=== PATIENT | male | born 1945 | race Caucasian/White ===

== ENCOUNTER → 2018-12-01 08:14 | Outpatient (CLI) | payer MEDICARE, OTHER, SELFPAY ==
--- NOTE | 2018-12-01 09:46 | NEURO ---
NCS and/or EMG Patient Report Ordering Doctor: Harish Lal DATE OF SERVICE: 12/01/18 Marvin Cadet is a 73 year old male who presents for electrodiagnostic testing of the left upper limb. He reports numbness and tingling in the left hand. He did not wish to have testing performed in the right upper limb. Electrodiagnostic findings: Left median motor nerve demonstrates prolonged distal latency with normal amplitude and reduced conduction velocity. Normal left ulnar motor latency with no decrease in conduction velocity across the elbow. Prolonged left median F-wave. Prolonged left median sensory latency. Prolonged left median palmar latency. Needle EMG demonstrated no evidence of denervation in any muscles tested in the left upper limb. Electrodiagnostic impression: This is an abnormal study. 1. Electrodiagnostic findings demonstrate left-sided median mononeuropathy. This is consistent with an advanced left carpal tunnel syndrome If there are any further questions, please do not hesitate to contact me.
== END ==
PROVIDERS: Family Provider Family Medicine; PCP Family Medicine; Referring Provider Physician Assistant Surgical; Visit Provider Physician Assistant Surgical
DX: R20.2 Paresthesia of skin (principal)
CPT/HCPCS: 95886; 95910

== ENCOUNTER → 2018-12-23 15:34 | Outpatient (CLI) | payer MEDICARE, OTHER, SELFPAY ==
--- NOTE | 2018-12-23 15:46 | EKG12_ITS ---
Test Reason : PRE OP Blood Pressure : / mmHG Vent. Rate : 087 BPM Atrial Rate : 087 BPM P-R Int : 140 ms QRS Dur : 076 ms QT Int : 358 ms P-R-T Axes : 057 -23 013 degrees QTc Int : 430 ms Normal sinus rhythm Normal ECG Confirmed by FERNY MARTINS, LOIS ([id number]), design editor PARADISE MCMAHON ([id number]) on 12/27/2018 1:24:03 PM Referred By: Urbano Keith Confirmed By:YARELIS ISAACS MD
[2018-12-23 16:08] LABS: Hemoglobin 14.6 g/dL (13.0-16.5); Mean Corp Hgb Conc 32.4 g/dL (32-36); Mean Corpuscular Hgb 30.7 pg (27.0-32.0); Mean Corpuscular Volume 94.7 fL (80-94); Mean Platelet Vol. 10.5 fl (6.2-12.0); Platelet Count 213 K/mm3 (150-450); RBC Distribution Width CV 12.6 % (11.6-14.6); RBC Distribution Width SD 43.8 fl (35.1-43.9); Red Blood Count 4.75 M/mm3 (4.6-6.2); White Blood Count 8.5 K/mm3 (4.4-11.0)
[2018-12-23 16:31] LABS: Anion Gap 7 (5-15); BUN 21 mg/dL (7-18); BUN/Creat Ratio 14.8 RATIO (10-20); Chloride 104 mmol/L (98-107); Creatinine, Serum 1.42 mg/dL (0.70-1.30); EST Glomerular Filtration Rate 52 mL/min (>60); Est Glom Filt Rate - Afr Amer 63 mL/min (>60); Glucose 102 mg/dL (74-106); Potassium 4.3 mmol/L (3.5-5.1); Sodium Level 138 mmol/L (136-145)
== END ==
PROVIDERS: Family Provider Family Medicine; PCP Family Medicine; Referring Provider Physician Assistant; Visit Provider Physician Assistant
DX: Z01.818 Encounter for other preprocedural examination (principal); I10 Essential (primary) hypertension; Z01.810 Encounter for preprocedural cardiovascular examination
CPT/HCPCS: 36415; 80048; 85027; 93005

== ENCOUNTER 2019-04-05 09:00 | Outpatient (RCR) | payer MEDICARE, OTHER, SELFPAY ==
--- NOTE | 2019-01-17 14:33 | HP.OTEVAL_ITS ---
Patient's Visit Information MARVIN MCMAHON is a 73 year old M, referred to Occupational Therapy by Urbano Keith PA-C, with a diagnosis of L CTS. Date of Evaluation: 01/17/19 Occupational Therapist: Harini Stout, OTR/L - Subjective Subjective: Marvin arrived and he is s/p CTS release on 12/29/18. He noted he is about 3 weeks post operation. 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 He noted that prior to surgery he was dealing with carpal tunnel related pain for 2-3 years in bilateral hands. He has hopes to also get right hand completed but due to pain in left has chosen to wait until completing rehab on left hand. - ADLs Dressing: Button shirt, Pants, Socks Fasteners: Tie shoes, Buttons, Zippers Eating: Use silverware, Cut food, Butter bread Bathing: Handle washcloth & soap, Wash hair Toileting: Manage clothing Kitchen: Chop with knife, Peel fruits & vegetables, Open jars, Open bottle caps, Lift gallon of milk, Pour from pitcher, Lift saucepan, Load/unload correctional guard Miscellaneous: Start car, Open medication bottle, Handle money (change), Hold change, Take things out of wallet, Open envelope, Write, Turn pages in book, Use hand tools, Use power tools, Use computer keyboard, Drive - Pain Left Wrist 5 Pain Intensity Range: 4, 8 - Objective Objective/Observation: Scar is closed and skin is pink and healing. - ROM Forearm: WFL Wrist: flexion R 0-66, L 0-61; extentsion R 0-29, L 0-41 MP: WFL PIP: WFL DIP: WFL - Strength Special Education Supervisor: R 78, L 50 Lateral Pinch: R 21, L 15 Tripod Pinch: R 16, L 18 Tip-to-Tip Pinch: R 9, L 6 - Sensation Thumb: R 4.17, L 4.56 Index: R 4.17, L 3.84 Middle: R 56, L 5.88 Ring: R 4.08, L 3.84 Little: R 3.61, L 3.61 - Nine Hole Peg Right: 26.91 s Left: 23.93 s - Quick DASH-Disab of Arm,Shoulder& Hand Quick DASH Score: 43.1800 - Goals Goal:: Marvin to increase L contour grinder by 20 lbs to promote increased strength and endurance to promote increased ability to return to PLOF by d/c. Goal:: Marvin to be mod I to manage pain and sensory deficits 4/5 trials 80% of the time to promote increased participation ADL/IADLs by d/c. Goal:: Marvin to complete sensory re- integration program to promote increased sensory training and decreased sensory defucuts 4/5 trials 80% of the time to promote returning to PLOF by d/c. Goal:: Marvin to be mod I to complete daily scar massage and desensitization program to promote decreased sensitivity around scar and promote increased mobility of L wrist 4/5 trials 80% of the time by d/c. Goal:: Marvin be (i) to complete joint protectiona nd wrist mechanics to decrease increased tension on soft tissue and risk of reinjury 4/5 trials 80% of the time by d/c. Goal:: Marvin to be (i) to return to all ADL/IADls including chopping/pealing vegetables, cooking tasks, and general self care tasks 4/5 trials 80% of the time to promote increased strength, endurance, and mobility needed to return to PLOF by d/c. Goal:: Marvin to be (i0 to complete daily HEP as set up by therpaist to promote increased ROM, HEP, and general ADL/IADls 4/5 trials 80% of the time by d/c. - Rehabilitation General Assessment: Marvin is 74 y/o who is s/p CTS release on L hand. He noted he has had symptoms for last 2-3 years but recently had L hand operated on and released. He noted increased symptoms post-surgery and sensory deficits noted on bilateral hands. He exhibits limited ROM and strength. Skilled OT warranted for 2-3x weekly for the next 4 weeks to promote increased ability to return to PLOF for ADL/IADLs. Rehabilitation Potential: Good - Anticipated Interventions Anticipated Interventions: A/AAROM/PROM, Strengthening, Edema Control, Massage, Triggerpoint Release, Desensitization, Sensory Retraining, Wound Care, Modalities, Orthoses, Joint Protection/Energy Conservation, Ergonomic Education, Fine Motor Coord/[place], Neuro Reeducation, ADL Training, Caregiver Training, Home Program - Visit Plan Frequency: 2-3x /Week Duration: 4 Weeks General Plan: Marvin to complete skilled OT services for ROM, strength, sensory re integration and desensitization, pain management, and general return to all ADL/IADLS. TEXT: Thank you for the opportunity to evaluate your patient. For Medicare and Medicare HMO plans, please review the plan of care and approve it. It will need to be FAXED BACK to us at [phone] for Medicare purposes. Please let me know if there are questions or concerns regarding this plan of care. Physician Signature: Date:
--- NOTE | 2019-02-02 11:30 | HP.OTREVAL ---
Urbano Keith PA-C, It has been my pleasure to treat MARVIN MCMAHON over the last 8 visits for L CTS. Please see the progress note below for an update on the occupational therapy plan of care! Subjective: Arrived and noted he has completed HEP. He noted he backed off activities yesterday and pain was not as bad and he slept through the night well. KT tape felt good during day but noted at night hurt two days ago. Asked if did more that day but unable to recall. Objective/Function: Completed taking new measurements today of 02/02/19 and results as follows: Strength: water pumping station engineer R 76, L 52. lateral pinch R 21, L 16. tripod R 16, L 13. pincer R 10, L 10. Sensation: L hand. 2nd 4.17. 3rd 6.65. 4th 3.61. 5th 3.61. thumb 4.31. 9 hole: R 31.16 s; L 25. 95 s. Concerns for sensation and strength are noted. MF has regressed in regaining sensation. He continues to have pain and stiffness. Plan Frequency: 2-3x /Week Duration: 2 Weeks Visits in this POC: 12-14 Plan: continue POC as directed for scheduled appointments for another 2 weeks to get 12-14 total. No changes in POC as will continuing to work on strength, sensory re integration strategies, and general pain management and return of function of L hand. OT has significant concerns of sensation of left hand in regards to middle finger and thumb. Marvin is unable to recall the significance of his nerve impingement but strength is progressing slowly from initial measurements and pain is constant. OT is trialing KT taping methods as well as requesting that he reduces consistent activities with L hand and if having pain take short breaks. Ot has talked of potential of wearing wrist cock up brace for pain management but he noted made right unaffected hand hurt worse when wearing for CTS and unwilling. It is likely he is completing too much but he consistently notes no progress or changes with pain since the initial evaluation. Goals - Goals Goal:: Marvin to increase L water pumping station engineer by 20 lbs to promote increased strength and endurance to promote increased ability to return to PLOF by d/c. Goal:: Marvin to be mod I to manage pain and sensory deficits 4/5 trials 80% of the time to promote increased participation ADL/IADLs by d/c. Goal:: Marvin to complete sensory re- integration program to promote increased sensory training and decreased sensory defucuts 4/5 trials 80% of the time to promote returning to PLOF by d/c. Goal:: Marvin to be mod I to complete daily scar massage and desensitization program to promote decreased sensitivity around scar and promote increased mobility of L wrist 4/5 trials 80% of the time by d/c. Goal:: Marvin be (i) to complete joint protectiona nd wrist mechanics to decrease increased tension on soft tissue and risk of reinjury 4/5 trials 80% of the time by d/c. Goal:: Marvin to be (i) to return to all ADL/IADls including chopping/pealing vegetables, cooking tasks, and general self care tasks 4/5 trials 80% of the time to promote increased strength, endurance, and mobility needed to return to PLOF by d/c. Goal:: Marvin to be (i0 to complete daily HEP as set up by therpaist to promote increased ROM, HEP, and general ADL/IADls 4/5 trials 80% of the time by d/c. Anticipated Interventions Anticipated Interventions: A/AAROM/PROM, Strengthening, Edema Control, Massage, Triggerpoint Release, Desensitization, Sensory Retraining, Wound Care, Modalities, Orthoses, Joint Protection/Energy Conservation, Ergonomic Education, Fine Motor Coord/[place], Neuro Reeducation, ADL Training, Caregiver Training, Home Program Please do not hesitate to contact me at [phone] by phone or if you have questions or concerns regarding this new plan of care! Sincerely, Harini Stout, ANABELAR/L
--- NOTE | 2019-02-14 09:05 | HP.OTREVAL ---
Urbano Keith PA-C, It has been my pleasure to treat MARVIN MCMAHON over the last 13 visits for L CTS. Please see the progress note below for an update on the occupational therapy plan of care! Subjective: Arrived and noted went to [employer] game. Noted movement is better but still numbness/tingling in IF, MF , and thumb of left hand. Numbness and tingling consistent with median nerve distribution. Objective/Function: Marvin completed reassessment on this date 02/14/19 and is as follows: ROM. - flexion: R WFL, L 0-64. - extension R WFL, L 0-52. Strength: - career development counselor R 81, L 64 lbs. - lateral R 22, L 14 lbs. - tripod R 15, L 10 lbs. - pincer R 15, L 9 lbs. Touch test: R. 2nd 4.08 ,3rd 3.84 ,4th 3.61, 5th 3.22, thumb 4.17. L. 2nd 4.17, 3rd 6.10, 4th 3.61, 5th 3.22, thumb 4.93. 9-hole pegboard test: R 21.56 s. L 24.75 s. Some progress noted with sensation of MF only. Progression noted for strength. Plan Frequency: 1x/Week Duration: 3 Weeks Visits in this POC: 16 Plan: continue POC for 1x weekly for the next three weeks to focus on continue strengthening as well as sensory techniques. He is to complete HEP of off days to promote returning to PLOF. Goals - Goals Goal:: Marvin to increase L career development counselor by 20 lbs to promote increased strength and endurance to promote increased ability to return to PLOF by d/c. Goal:: Marvin to be mod I to manage pain and sensory deficits 4/5 trials 80% of the time to promote increased participation ADL/IADLs by d/c. Goal:: Marvin to complete sensory re- integration program to promote increased sensory training and decreased sensory defucuts 4/5 trials 80% of the time to promote returning to PLOF by d/c. Goal:: Marvin to be mod I to complete daily scar massage and desensitization program to promote decreased sensitivity around scar and promote increased mobility of L wrist 4/5 trials 80% of the time by d/c. Goal:: Marvin be (i) to complete joint protection and wrist mechanics to decrease increased tension on soft tissue and risk of reinjury 4/5 trials 80% of the time by d/c. Goal:: Marvin to be (i) to return to all ADL/IADls including chopping/pealing vegetables, cooking tasks, and general self care tasks 4/5 trials 80% of the time to promote increased strength, endurance, and mobility needed to return to PLOF by d/c. Goal:: Marvin to be (i) to complete daily HEP as set up by therpaist to promote increased ROM, HEP, and general ADL/IADls 4/5 trials 80% of the time by d/c. Anticipated Interventions Anticipated Interventions: A/AAROM/PROM, Strengthening, Edema Control, Massage, Triggerpoint Release, Desensitization, Sensory Retraining, Wound Care, Modalities, Orthoses, Joint Protection/Energy Conservation, Ergonomic Education, Fine Motor Coord/[place], Neuro Reeducation, ADL Training, Caregiver Training, Home Program Please do not hesitate to contact me at [phone] by phone or if you have questions or concerns regarding this new plan of care! Sincerely, Harini Stout, OTR/L
--- NOTE | 2019-03-08 11:00 | HP.OTREVAL ---
Urbano Keith PA-C, It has been my pleasure to treat MARVIN MCMAHON over the last 16 visits for L CTS. Please see the progress note below for an update on the occupational therapy plan of care! Subjective: Arrived and noted will bet getting MRI on L wrist due to numbness and tingling. Feels that he has made 20 % only. He noted Dr. Lal did write script for gabapentin to promote management of symptoms. Objective/Function: Completed reassessment today of 03/08/19 and results as follows: ROM is WFL. Strength. plc controls engineer R 83, L 71 lbs. lateral R 21, L 14 lbs. tripod R 15, L 10 lbs. pincer R 14, L 12. Sensation testing today 03/08/19: R 2nd 4.08, 3rd 4.08, 4th 3.61, 5th 3.61, thumb 3.84. L 2nd 4.93, 3rd 5.07, 4th 3.84, 5th 2.83, thumb 4.93. Monofilament test on 03/01/19 on left hand only: L 2nd 3.84, 3rd 4.93, 4th 3.22, 5th 3.22, thumb 4.31. 9-hole pegboard test: R 22.93 s. L 28. 18 s Plan Frequency: 1x/Week Duration: 3 Weeks Visits in this POC: 1x for total 17 Plan: continue POC for 1x follow up in 4 weeks. he is scheduled for April 05. In the meantime he is to complete HEP , get antivibration gloves, and work ergonomics while driving. At every rest area he is to completed stretches educated on to promote managing symptoms. Goals - Goals Goal:: Marvin to increase L plc controls engineer by 20 lbs to promote increased strength and endurance to promote increased ability to return to PLOF by d/c. - Goal Meant. Goal:: Marvin to be mod I to manage pain and sensory deficits 4/5 trials 80% of the time to promote increased participation ADL/IADLs by d/c. Goal:: Marvin to complete sensory re- integration program to promote increased sensory training and decreased sensory defucuts 4/5 trials 80% of the time to promote returning to PLOF by d/c. Goal:: Marvin to be mod I to complete daily scar massage and desensitization program to promote decreased sensitivity around scar and promote increased mobility of L wrist 4/5 trials 80% of the time by d/c. Goal:: Marvin be (i) to complete joint protection and wrist mechanics to decrease increased tension on soft tissue and risk of reinjury 4/5 trials 80% of the time by d/c. Goal:: Marvin to be (i) to return to all ADL/IADls including chopping/pealing vegetables, cooking tasks, and general self care tasks 4/5 trials 80% of the time to promote increased strength, endurance, and mobility needed to return to PLOF by d/c. Goal:: Marvin to be (i) to complete daily HEP as set up by therpaist to promote increased ROM, HEP, and general ADL/IADls 4/5 trials 80% of the time by d/c. Anticipated Interventions Anticipated Interventions: A/AAROM/PROM, Strengthening, Edema Control, Massage, Triggerpoint Release, Desensitization, Sensory Retraining, Wound Care, Modalities, Orthoses, Joint Protection/Energy Conservation, Ergonomic Education, Fine Motor Coord/[place], Neuro Reeducation, ADL Training, Caregiver Training, Home Program Please do not hesitate to contact me at [phone] by phone or if you have questions or concerns regarding this new plan of care! Sincerely, RITIKA Zavala/Nghia
--- NOTE | 2019-04-05 09:46 | HP.OTDCSUM ---
HP - OT D/C Summary It has been my pleasure to treat MARVIN MCMAHON under orders from Urbano Keith PA-C, for the diagnosis of L CTS for a total of 17 visit(s). Please see the following information for a summary of their discharge status. - Overall Improvement % Improvement: 40 - Objective Objective/Function: Arrived and completed reassessment on this date 04/05/19 and results as follows: Strength: - public health internship R 74, L 64. lateral R 17, L 22. tripod R 24, L 17. pincer R 18, L 19. Sensation. R 2nd 3.84, 3rd 3.61, 4th 3.84, 5th 3.61, thumb 3.84. L 2nd 4.08, 3rd 5.18, 4th 3.22, 5th 3.22, thumb 4.56. 9 hole pegboard test: R: 22.40 s. L: 24.40 s. Nerve still regenerating but has progressed in sensation of IF and thumb from previous measurements. - Goals Patient Goals: Regain Mobility, Regain Strength, Decrease Pain, Decrease Swelling/Stiffness, Improve Fine Motor Skills, Use Hand/Wrist/Arm Normally Again, Sleep Better, Decrease Tingling/Numbness, Increase ROM, Be More Independent in ADLS, Resume Former Household Responsibilities (Cooking,Cleaning,Yard, etc.), Resume Hobbies Goal:: Marvin to increase L public health internship by 20 lbs to promote increased strength and endurance to promote increased ability to return to PLOF by d/c. - Goal Meant. Goal:: Marvin to be mod I to manage pain and sensory deficits 4/5 trials 80% of the time to promote increased participation ADL/IADLs by d/c. Goal:: Marvin to complete sensory re- integration program to promote increased sensory training and decreased sensory defucuts 4/5 trials 80% of the time to promote returning to PLOF by d/c. Goal:: Marvin to be mod I to complete daily scar massage and desensitization program to promote decreased sensitivity around scar and promote increased mobility of L wrist 4/5 trials 80% of the time by d/c. Goal:: Marvin be (i) to complete joint protection and wrist mechanics to decrease increased tension on soft tissue and risk of reinjury 4/5 trials 80% of the time by d/c. Goal:: Marvin to be (i) to return to all ADL/IADls including chopping/pealing vegetables, cooking tasks, and general self care tasks 4/5 trials 80% of the time to promote increased strength, endurance, and mobility needed to return to PLOF by d/c. Goal:: Marvin to be (i) to complete daily HEP as set up by therpaist to promote increased ROM, HEP, and general ADL/IADls 4/5 trials 80% of the time by d/c. - Plan Plan: Marvin will be discharged at this time. He is leaving for the [facility] for about 2 months. He is to call with questions/concerns and contact information has been provided to client to reach OT as needed. - D/C Information If there are questions or concerns regarding this patient's occupational therapy, please fell free to call me at [phone]. Thank you for the referral of this patient. Sincerely, Harini Stout, OTR/L
== END 2019-04-05 19:00 | disposition home or self-care (01) ==
LOC: OT 09:00
PROVIDERS: Family Provider Family Medicine; PCP Family Medicine; Referring Provider Physician Assistant; Visit Provider Physician Assistant
DX: G56.02 Carpal tunnel syndrome, left upper limb (principal)
CPT/HCPCS: 97110; 97140; 97166; 97168; 97530